=== PATIENT | female | born 1975 | race Caucasian/White ===

== ENCOUNTER → 2018-07-10 | Outpatient (CLI) | payer OTHER ==
[~2018-07-10] MED LIST: ADULT LOW DOSE81 MG; CLEOCIN HCL300 MG PO; CYCLOBENZAPRINE5 MG PO; ETODOLAC 400 M400 MG PO; FLEXERIL PO; MULTIVITAMINS; PROMETRIUM; ROBAXIN 750 MG750 M1 PO; TORADOL 10 MG T10 MG PO; TRAMADOL 50 MG50 MG PO; VENTOLIN HFA 1818 GM INH
== END ==
LOC: M.RAD 13:25
DX: Z12.31 Encounter for screening mammogram for malignant neoplasm of breast (principal)

== ENCOUNTER → 2020-09-24 | Outpatient (CLI) | payer OTHER | LOC: M.RAD 10:32 | PROVIDERS: ATTEND Obstetrics & Gynecology | DX: Z12.31 Encounter for screening mammogram for malignant neoplasm of breast (principal) ==

== ENCOUNTER → 2020-09-30 | Outpatient (CLI) | payer OTHER | LOC: M.ULTRA 09:53 | PROVIDERS: ATTEND Obstetrics & Gynecology | DX: N63.12 Unspecified lump in the right breast, upper inner quadrant (principal); N60.01 Solitary cyst of right breast ==

== ENCOUNTER 2021-07-13 16:32 | Emergency (ER) | payer OTHER ==
[~2021-07-13] VITALS: Ht 152.4 cm; Wt 68.0 kg
[2021-07-13] MEDS ORDERED: CLARITIN10 M3 PO (16:42)
[2021-07-13] MEDS ORDERED: STRATTERA10 MG PO (16:42)
[2021-07-13] MEDS ORDERED: MOBIC7.5 MG PO (17:31)
[2021-07-13 17:42] VITALS: BP 165/96
== END 2021-07-13 17:42 | disposition home or self-care (01) ==
LOC: M.ERS 16:32
DX: M25.561 Pain in right knee (principal); M25.531 Pain in right wrist; J45.909 Unspecified asthma, uncomplicated; Z79.899 Other long term (current) drug therapy; Z79.82 Long term (current) use of aspirin; Z88.0 Allergy status to penicillin; Z91.018 Allergy to other foods; W19.XXXA Unspecified fall, initial encounter; Y93.89 Activity, other specified; Y92.098 Other place in other non-institutional residence as the place of occurrence of the external cause; Y99.8 Other external cause status

== ENCOUNTER 2021-09-04 14:14 | Emergency (ER) | payer OTHER ==
[~2021-09-04] VITALS: Ht 152.4 cm; Wt 68.0 kg
[~2021-09-04 14:14] MED LIST changes: +CLARITIN10 M3 PO; +MOBIC7.5 MG PO; +STRATTERA10 MG PO
[2021-09-04] MEDS ORDERED: SYMBICORT160 MCG/4. INH (14:25)
[2021-09-04] MEDS ORDERED: VENLAFAXINE HCL75 M2 PO (14:25)
[2021-09-04] MEDS ORDERED: PROPRANOLOL 1010 MG PO (14:26)
[2021-09-04 14:51] LABS: INFLUENZA A ANTIGEN Negative (Negative); INFLUENZA B ANTIGEN Negative (Negative)
[2021-09-04] MEDS ORDERED: MEDROLDOSEPACK PO (15:01)
[2021-09-04 15:09] VITALS: BP 143/54
== END 2021-09-04 15:10 | disposition home or self-care (01) ==
LOC: M.ERS 14:14
PROVIDERS: Physician Assistant
DX: J06.9 Acute upper respiratory infection, unspecified (principal); Z20.822 Contact with and (suspected) exposure to COVID-19; J45.909 Unspecified asthma, uncomplicated; Z98.51 Tubal ligation status; Z79.899 Other long term (current) drug therapy; Z88.0 Allergy status to penicillin; Z91.018 Allergy to other foods